=== PATIENT | female | born 1970 | race Caucasian/White ===

== ENCOUNTER 2020-08-24 11:42 | Outpatient (CLI) | payer OTHER | END 2020-08-24 11:43 | disposition home or self-care (01) | LOC: BURRAD 11:42 | PROVIDERS: ATTEND Registered Nurse Community Health | DX: R10.11 Right upper quadrant pain (principal) | CPT/HCPCS: 74019 ==

== ENCOUNTER 2025-05-08 08:58 | Outpatient (CLI) | payer BC | END 2025-05-08 08:59 | disposition home or self-care (01) | LOC: BURRAD 08:58 | PROVIDERS: ATTEND Family Medicine | DX: M79.642 Pain in left hand (principal) ==